=== PATIENT | female | born 1935 | race Caucasian/White ===

== ENCOUNTER 2021-04-13 14:01 | Outpatient (CLI) | payer MEDICARE | END 2021-04-13 14:02 | disposition home or self-care (01) | LOC: CSHCT 14:01 | PROVIDERS: ATTEND Internal Medicine Cardiovascular Disease | DX: I48.91 Unspecified atrial fibrillation (principal) | CPT/HCPCS: 80053; 85027; 85610; 85730; 86850; 86900; 86901; 93005; 93010; U0003; U0005 ==